=== PATIENT | male | born 2000 | race African-American/Black ===

== ENCOUNTER 2020-11-04 20:03 | Emergency (ER) | payer OTHER ==
[2020-11-04] MEDS ORDERED: KEFLEX250 MG PO (22:58)
== END 2020-11-04 23:12 | disposition home or self-care (01) ==
LOC: FER 20:03
DX: S81.812A Laceration without foreign body, left lower leg, initial encounter (principal); F17.200 Nicotine dependence, unspecified, uncomplicated; V86.96XA Unspecified occupant of dirt bike or motor/cross bike injured in nontraffic accident, initial encounter; Y92.410 Unspecified street and highway as the place of occurrence of the external cause
CPT/HCPCS: 73590